=== PATIENT | female | born 1940 | race Caucasian/White ===

== ENCOUNTER → 2018-06-02 11:45 | Outpatient (CLI) | payer MEDICARE, BC, SELFPAY ==
[2018-06-02 13:05] LABS: Abs Immature Grans 0.01 k/cumm (0.0-0.09); Absolute Basophil Count 0.02 k/cumm (0.0-0.2); Absolute Eosinophil Count 0.12 k/cumm (0.0-0.7); Absolute Monocyte Count 0.55 k/cumm (0.11-0.7); Absolute Neutrophil Count 3.15 k/cumm (1.2-6.7); Basophils % 0.4; Eosinophils % 2.3; HCT 44.6 % (36.0-46.0); HGB 14.2 g/dL (12.0-15.5); Immature Grans % 0.2; Lymphocytes % 26.7; Mean Corp. HGB Concentration 31.8 g/dL (32.0-36.0); Mean Corpuscular Hemoglobin 26.3 pg (27.0-33.0); Mean Corpuscular Volume 82.6 fL (80-95); Mean Platelet Volume 10.2 fL (8.0-11.0); Monocytes % 10.5; Neutrophils % 59.9; Platelet Count 196 x1000/uL (130-400); RBC Distribution Width 14.9 % (11.7-14.6); White Blood Cell Count 5.25 k/cumm (4.4-10.8)
[2018-06-02 13:06] LABS: ALT 24 U/L (12-78); AST 18 U/L (15-37); Albumin 3.8 g/dL (3.4-5.0); Alkaline Phosphatase 84 U/L (46-116); Anion Gap 5.7 mmol/L (3-11); BUN 23 mg/dL (7-18); Bilirubin, Total 0.4 mg/dL (0.2-1.0); CO2 31.3 mmol/L (21.0-32.0); CREATININE 1.07 mg/dL (0.55-1.02); Calcium 9.3 mg/dL (8.5-10.1); Chloride 104 mmol/L (98-107); Glucose 93 mg/dL (70-100); Potassium 4.3 mmol/L (3.5-5.1); Sodium 141 mmol/L (136-145); TSH (W/Ref FT4) 1.46 uIU/mL (0.358-3.74); Total Protein 7.5 g/dL (6.4-8.2)
== END ==
PROVIDERS: PCP Family Medicine; Visit Provider Nurse Practitioner Family
DX: R53.83 Other fatigue (principal)
CPT/HCPCS: 36415; 80053; 84443; 85025

== ENCOUNTER 2018-08-05 15:03 | Outpatient (CLI) | payer MEDICARE, BC, SELFPAY ==
--- NOTE | 2018-08-05 13:36 | DI.RAD_ITS ---
SYMPTOM/DIAGNOSIS: COUGH,H/O LT LUNG CA, R05 PA AND LATERAL CHEST: The patient has a history of resection of a left lung carcinoma. A linear density projected over the left upper lobe presumably represents a region of scarring. No infiltrate is identified. There is no pleural effusion. The heart is not enlarged. There is unfolding and ectasia of the thoracic aorta. SUMMARY: No evidence of acute cardiopulmonary disease. The patient is apparent status post resection of a left lung carcinoma. If there is any further question regarding the status of this patient, then a CT could be considered for further review.
== END 2018-08-05 15:23 ==
PROVIDERS: PCP Family Medicine; Visit Provider Emergency Medicine
DX: Z85.118 Personal history of other malignant neoplasm of bronchus and lung (principal); Z90.2 Acquired absence of lung [part of]; R05 Cough
CPT/HCPCS: 71046

== ENCOUNTER 2018-08-18 01:44 | Outpatient (CLI) | payer MEDICARE, BC, SELFPAY ==
[2018-08-18 10:29] LABS: HCT 41.9 % (36.0-46.0); HGB 13.3 g/dL (12.0-15.5); Mean Corp. HGB Concentration 31.7 g/dL (32.0-36.0); Mean Corpuscular Hemoglobin 26.1 pg (27.0-33.0); Mean Corpuscular Volume 82.3 fL (80-95); Mean Platelet Volume 9.2 fL (8.0-11.0); Platelet Count 230 x1000/uL (130-400); RBC 5.09 m/cumm (4.00-5.20); RBC Distribution Width 14.7 % (11.7-14.6); White Blood Cell Count 5.15 k/cumm (4.4-10.8)
[2018-08-18 11:40] LABS: Cholesterol 193 mg/dL (50-200); HDL Cholesterol 43 mg/dL (40-60); LDL CHOLESTEROL 127 mg/dL (<100); Triglyceride 135 mg/dL (30-150); Vitamin B12 536 pg/mL (193-986)
== END 2018-08-18 02:04 ==
PROVIDERS: PCP Family Medicine; Visit Provider Family Medicine
DX: R79.89 Other specified abnormal findings of blood chemistry (principal); C34.90 Malignant neoplasm of unspecified part of unspecified bronchus or lung; K21.9 Gastro-esophageal reflux disease without esophagitis
CPT/HCPCS: 36415; 80061; 83721; 85027; 82607

== ENCOUNTER 2018-09-08 00:29 | Outpatient (CLI) | payer MEDICARE, BC, SELFPAY ==
--- NOTE | 2018-09-08 11:55 | DI.MAMMO_ITS ---
SYMPTOM/DIAGNOSIS: SCREENING, Z12.31 MAMMOGRAM: 09/08 Mammograms were interpreted according to the usual protocol including computer analysis with CAD system, tomosynthesis and C view imaging. The breasts are of moderate density with fairly symmetrical distribution of fibroglandular tissue. No dominant mass or clumped microcalcification is identified in either breast. The current examination is compared with previous examinations including July 2017 and there has been no gross interval change in appearance in comparison with the previous studies. CONCLUSION: No specific evidence of malignancy at this time. Routine screening examinations are suggested at yearly intervals in this age group according to the ACS/ACR guidelines. Category 1, breast density category B. MQSA ASSESSMENT OF FINDINGS: Negative. Category 1. Patient will receive a letter notifying them of these results. BI-RADS category B. There are scattered areas of fibroglandular density.
== END 2018-09-08 00:49 ==
PROVIDERS: PCP Family Medicine; Visit Provider Family Medicine
DX: Z12.31 Encounter for screening mammogram for malignant neoplasm of breast (principal)
CPT/HCPCS: 77063; 77067

== ENCOUNTER 2019-12-15 14:33 | Outpatient (CLI) | payer MEDICARE, BC, SELFPAY ==
[2019-12-15 15:00] LABS: HCT 42.1 % (36.0-46.0); HGB 13.6 g/dL (12.0-15.5); Mean Corp. HGB Concentration 32.3 g/dL (32.0-36.0); Mean Corpuscular Volume 80.5 fL (80-95); Mean Platelet Volume 9.2 fL (8.0-11.0); Platelet Count 182 x1000/uL (130-400); RBC 5.23 m/cumm (4.00-5.20); RBC Distribution Width 14.7 % (11.7-14.6); White Blood Cell Count 3.82 k/cumm (4.4-10.8)
[2019-12-15 16:24] LABS: ALT 28 U/L (14-59); AST 24 U/L (15-37); Albumin 3.6 g/dL (3.4-5.0); Alkaline Phosphatase 86 U/L (46-116); Anion Gap 8.1 mmol/L (3-11); BUN 20 mg/dL (7-18); Bilirubin, Total 0.5 mg/dL (0.2-1.0); CO2 32.9 mmol/L (21.0-32.0); CREATININE 0.83 mg/dL (0.55-1.02); Calcium 8.9 mg/dL (8.5-10.1); Chloride 100 mmol/L (98-107); Glucose 98 mg/dL (74-106); Potassium 3.6 mmol/L (3.5-5.1); Sodium 141 mmol/L (136-145); Total Protein 7.3 g/dL (6.4-8.2); Uric Acid 5.2 mg/dL (2.6-6.0)
[2019-12-16 11:00] LABS: Abs Immature Grans 0.01 k/cumm (0.0-0.09); Absolute Basophil Count 0.01 k/cumm (0.0-0.2); Absolute Eosinophil Count 0.08 k/cumm (0.0-0.7); Absolute Lymphocyte Count 0.75 k/cumm (1.2-3.4); Absolute Monocyte Count 0.56 k/cumm (0.11-0.7); Absolute Neutrophil Count 2.46 k/cumm (1.2-6.7); Basophils % 0.3; Eosinophils % 2.1; Immature Grans % 0.3 %; Lymphocytes % 19.4; Monocytes % 14.5; Neutrophils % 63.4
== END 2019-12-15 14:53 ==
PROVIDERS: PCP Family Medicine; Visit Provider Family Medicine
DX: Z01.818 Encounter for other preprocedural examination (principal); Z87.39 Personal history of other diseases of the musculoskeletal system and connective tissue
CPT/HCPCS: 80053; 85027; 84550; 85007

== ENCOUNTER 2020-05-05 09:29 | Outpatient (CLI) | payer MEDICARE, BC, SELFPAY ==
[2020-05-05] MEDS: Omnipaque 350 MG/ML 100 ML BTL IJ (11:56)
--- NOTE | 2020-05-05 12:00 | DI.CT_ITS ---
EXAM: CT CHEST W CLINICAL HISTORY: Hx left lung ca/RL ground glass opacity on CT 2016 TECHNIQUE: COMPARISON: CT CHEST WITH CONTRAST from 08/09/[address] CHEST WO from 01/18/2017 CT CHEST WITH CONTRAST from 08/09/2017 CT CHEST WITH CONTRAST from 08/09/2017 FINDINGS: CT examination of the chest was performed with bolus infusion of 70 cc of Omnipaque 350. Images obta ined through the upper abdomen show an enhancing right lobe hepatic lesion measuring about 11 millime ters in greatest diameter, this was also present on prior CT of July 2015 although it may be sligh tly larger on the current examination. No additional hepatic or splenic abnormality seen. Visualize d portions of the pancreas appear intact. Multiple left renal cysts noted. Adrenals are unremarkabl e. Right kidney unremarkable in its visualized extent. Gallbladder and bile ducts unremarkable. There is been a prior left lobectomy. No recurrent mass or consolidation in the left lung. No signi ficant pleural based mass. No pleural effusion. Right lung contains a previously described upper lo be ground-glass opacity, this measures about 10 x 8 millimeters on diameter, grossly unchanged from p rior CT of July 2017. Otherwise right lung is clear. There is mild cardiomegaly. No mediastinal or hilar adenopathy. No supraclavicular or axillary santino opathy. No thoracic aortic aneurysm or dissection. No pulmonary embolus identified although the pulmonary ar terial circulation is not ideally opacified. IMPRESSION: No evidence of recurrent lung carcinoma. Persistent ground-glass opacity of the right upper pulmonar y lobe, no gross interval change in appearance since July 2017 CT.
== END 2020-05-05 09:49 ==
PROVIDERS: PCP Family Medicine; Visit Provider Family Medicine
DX: C34.92 Malignant neoplasm of unspecified part of left bronchus or lung; J98.4 Other disorders of lung; Z90.2 Acquired absence of lung [part of]
CPT/HCPCS: 71260; 82565; 85025; J3490

== ENCOUNTER 2020-05-12 10:26 | Outpatient (CLI) | payer MEDICARE, BC, SELFPAY ==
--- NOTE | 2020-05-12 14:00 | DI.MRI_ITS ---
EXAM: MR CERVICAL SPINE WO/W CLINICAL HISTORY: UNPROVOKED SEVERE NECK PAIN/STIFFNESS IN CANCER PT, M54.2, C03.0-GUM CA TECHNIQUE: Multiplanar multisequence MRI of the cervical spine was performed. CONTRAST MATERIAL: IV Contrast: 15 ML of Dotarem contrast administered. COMPARISON: CT CHEST WITH CONTRAST from 08/09/[address] CHEST WO from 01/18/[address] CHEST W from 05/05/2020 FINDINGS: BONES: Vertebral body heights are maintained. Degenerative changes are seen at multiple disc spaces i n the cervical spine. Alignment is normal. Degenerative endplate signal changes are seen at C5-C6. CERVICAL CORD: Craniovertebral junction is unremarkable. The cervical cord is normal size and signal intensity. No lesion is present. SOFT TISSUES: There are 2 well-circumscribed round masses in the subcutaneous fat in the posterior ne ck. The more superior measures 2.0 x 1.1 cm. More inferior measures 2.1 x 1 cm. These were partial ly visualized on a prior CT scan of the chest. ENHANCEMENT: No suspicious enhancement identified. C2-3: No disc herniation or bulge is identified. No significant central spinal canal or neural forami nal stenosis. C3-4: No disc herniation or bulge is identified. Mild degenerative changes of the right uncovertebral joint cause mild neural foraminal narrowing. No significant central spinal canal or left neural for aminal stenosis is seen. C4-5: No disc herniation or bulge is identified. No central spinal canal stenosis is seen. Uncoverte bral joint hypertrophy is noted causing moderate right and left neural foraminal stenosis. C5-6: There is mild prominence of the osteophyte disc complex effacing the anterior subarachnoid spac e. Mild narrowing of the central spinal canal is noted. Degenerative changes of the uncovertebral j oints are noted causing [id number] bilateral neural foraminal stenosis. C6-7: Mild prominence of the osteophyte disc complex. There is effacement of the anterior subarachno id space with flattening of the spinal cord anteriorly. Mild narrowing of the central spinal canal i s noted. There are mild hypertrophic changes of the uncovertebral joints causing mild narrowing of t he neural foramen bilaterally. Normal signal is seen in the spinal cord. C7-T1: No disc herniation or bulge is identified. No significant central spinal canal or neural dex inal stenosis IMPRESSION: 1. Multilevel degenerative changes throughout the cervical spine resulting in multilevel central spin al canal neural foraminal stenosis as described above. 2. Two subcutaneous nodules along the posterior neck. Please correlate with physical examination. F urther evaluation may be obtained with ultrasound. DATA REPOSITORY:
[2020-05-12] MEDS: Normal Saline Flush 10 ML SYR IVP (14:16)
[2020-05-12] MEDS: Gadoterate meglumine 20 ML VIAL 15 ML IVP (14:17)
== END 2020-05-12 10:46 ==
PROVIDERS: PCP Family Medicine; Visit Provider Family Medicine
DX: C03.0 Malignant neoplasm of upper gum (principal); M54.2 Cervicalgia; M48.02 Spinal stenosis, cervical region; M50.31 Other cervical disc degeneration, high cervical region; R22.1 Localized swelling, mass and lump, neck
CPT/HCPCS: 72156

== ENCOUNTER 2020-07-03 08:26 | Emergency (ER) | payer MEDICARE, BC, SELFPAY ==
[2020-07-03 08:25] VITALS: BP 141/69; PULSE 79; RESP 20; TEMP 36.6; O2SAT 98
--- NOTE | 2020-07-03 08:36 | ED.GENADUL_ITS ---
Discharge Plan Disposition Patient Disposition: [facility] Condition: Serious Discharge Details Chief Complaint: Epistaxis Clinical Impression: Hemorrhage from mouth Primary Care Provider: Ester Carmona ED Provider: Cherry Malin Home Meds and New Rx's Prescriptions: No Action latanoprost 2.5 ML drops 1 drp Ophthalmic DAILY RF: 0 timolol 1 drp OS BID RF: 0 pravastatin 10 mg tablet 10 mg PO DAILY Qty: 90 RF: 4 omeprazole 20 mg capsule,delayed release(DR/EC) 20 mg PO DAILY Qty: 90 RF: 3 amlodipine 10 mg tablet 10 mg PO DAILY Qty: 90 RF: 4 hydrochlorothiazide 25 mg Tablet 25 mg PO DAILY RF: 0 Discharge Data Discharge Date/Time-TO BE ENTERED AT DEPARTURE: 07/03/20 10:49 Medical Decision Making Patient is a pleasant 80-year-old female presenting today with chief complaint of epistaxis. Patient is brought in via EMS. She reports that she awoke this morning it 0715 and noted bleeding from the right naris. The time EMS arrived, proximally half hour later, the bleeding had stopped. Patient is brought in with bleeding controlled. 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 This was surgically extracted in 2019. Patient subsequently was diagnosed with same type of cancer on the left side of her neck which also underwent excision. Patient reports she is not had any complications since the postsurgical.. She reports she has not had any epistaxis. Patient's not anticoagulated. On exam, patient appears anxious. No active bleeding is noted. She has what appears to be erosion of the inferior aspect of the right naris and there is formed clot from the inferior aspect. No bleeding is noted in the posterior oropharynx but the mouth is coated and dried blood. Patient does have a plate in the upper aspect which she removed and clot is able to be visualized at the top of this. There is a continuation between the right side of the palate up into the nose with a quarter size clot in that area. Unclear at this time based on exam, if the bleeding is actually coming from the intraoral portion, the nose are a mixture of the 2. However, she is not bleeding at this time, hemodynamically stable. Patient is quite concerned that she is not able to avoid heavy lifting and worsening activities. Her Was recently diagnosed with multiple myeloma. She states that she is his primary caregiver. I did have a long conversation with her daughter, Ramila who can be reached at [phone]. She advised that until recently, the patient and her were both residing with her in a [id number] apartment. She is able to help out at home but would prefer that they move in with her. Shortly after I spoke with the patient's daughter, she began bleeding again. This immediately was coming into the intraoral cavity. Patient did have the plate out. I am concerned that the removal of the plate may have been what prompted the bleed once again. At this time, she does have large clots. The plate was replaced, Afrin applied both nares and a clamp placed to the nose. I will consult with ENT. Based on size of the clots and how quickly they are reforming, I am concerned that she may need to be transferred for surgical consultation with ENT as this is a difficult area to reach with the patient's unusual anatomy. Patient began bleeding much more vigorously. Was spitting out large clots approximately enough to fill cupped hand every 1 to 2 minutes. She is protecting her airway, remains hemodynamically stable. Decision was then made to align the patient's fitted plate with Gelfoam and have her reinsert this and bite down. Will consult with ENT as patient is bleeding from area that is difficult to visualize at this point. [place] [facility] advised Have a suction with her. They agree to excepting patient. Dr. Vasquez will accept the patient in the emergency department. Will arrange for ground Transport patient is continuing to bite down on her plate that is Gelfoam lined. This does seem to have drastically improved her bleeding. She does still have some Amount of bleeding coming from her nose and is suctioning some from her mouth. [place] [facility] [place]. All visible bleeding has stopped. Plate with Gelfoam is still in place and patient has been biting down. All of her questions and her daughter's questions were answered and they are in agreem tn with this plan. HPI General Mode of arrival: EMS . Date/Time Provider Initiated Documentation: 07/03/20 09:13 . Limitations to Documentation: no limitations . Information obtained by: patient and RN notes reviewed . History of Present Illness 80 year old F presents to the emergency department with the chief complaint of epistaxis, described as mild (resolved at this time), with intensity rated at 1 (none at this time). and is localized to the face. Patient reports no radiation. Patient started experiencing this hour(s) (1) and it has been now resolved. No relieving factors improve symptom(s), No exacerbating factors reported . Patient notes no other symptoms.. Patient did receive the following treatments prior to arrival, none Related Data Home Medications Medication Instructions Recorded Confirmed latanoprost 1 drp OPHTHALMIC DAILY drp 09/05/15 07/03/20 timolol 1 drp OS BID 08/13/18 07/03/20 pravastatin 10 mg tablet 10 mg PO DAILY #90 tab-cap 08/20/19 07/03/20 omeprazole 20 mg capsule,delayed 20 mg PO DAILY #90 tab-cap 09/04/19 07/03/20 release amlodipine 10 mg tablet 10 mg PO DAILY #90 tab 02/02/20 07/03/20 hydrochlorothiazide 25 mg PO DAILY 07/03/20 07/03/20 Previous Rx's Medication Instructions Recorded pravastatin 10 mg tablet 10 mg PO DAILY #90 tab-cap 08/20/19 omeprazole 20 mg capsule,delayed 20 mg PO DAILY #90 tab-cap 09/04/19 release amlodipine 10 mg tablet 10 mg PO DAILY #90 tab 02/02/20 Allergies Allergy/AdvReac Type Severity Reaction Status Date / Time brimonidine tartrate Allergy Intermediate REDNESS, Verified 07/03/20 08:28 [From Alphagan P] IRRITATION Penicillins Allergy Intermediate RASH Verified 07/03/20 08:28 General Stated Complaint: Epistaxis RAYNA: 3 Review of Systems Constitutional Constitutional: Reports as per HPI, Denies chills, Denies fatigue, Denies fever(s) and Denies headache(s) Eyes Eyes: Reports as per HPI, Denies blurry vision and Denies change in vision ENT Ears, Nose, Mouth, and Throat: Reports as per HPI, Reports bleeding gums, Denies change in voice and Denies headache(s) Cardiovascular Cardiovascular: Reports as per HPI, Denies chest pain and Denies dyspnea Respiratory Respiratory: Reports as per HPI, Denies cough, Denies hemoptysis and Denies dyspnea Gastrointestinal Gastrointestinal: Reports as per HPI, Denies melena, Denies hematochezia, Denies nausea and Denies vomiting Genitourinary Genitourinary: Reports as per HPI and Denies hematuria Integumentary/Breasts Skin/Breast: Denies unusual bruising Neurologic Neurologic: Denies headache(s) Endocrine Endocrine: Denies fatigue Hematologic/Lymphatic Hematologic/Lymphatic: Reports as per HPI, Denies easy bleeding and Denies easy bruising [facility] Medical History 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 Magnus Thornton Dilation and curettage 1979 2009 Extraction of cataract (~2011) Ligation of fallopian tube Social History Smoking/Tobacco Use Status: Former Tobacco Use Drug use: Never Do you feel safe at home: Yes Do you feel safe in your relationship?: Yes Exam Const General: cooperative, healthy appearing, comfortable, no acute distress, well developed and anxious Nutritional Appearance: average body habitus and well nourished Orientation: alert and awake [facility] Head: normal to inspection, normocephalic and atraumatic Ears: hearing grossly normal bilaterally and external ears normal General nose exam: epistaxis on the right (clot inferiorly, no active bleeding. Protruding white tissue through clot) anterior source, external nose abnormal, no nasal polyps and septum abnormal Face and sinus: face asymmetric (Postsurgical changes with an burn on the right side consistent with extract) Mouth: lip normal and tongue normal Teeth image: 1. Patient has post surgical erosion in this area approximately quarter-sized hole from the palate into the nasopharynx. There is a large clot that is visualized in this area. No active bleeding is a be noted. No surrounding tissue changes. Eyes General: appearance normal, both eyes and all related structures Neck Neck: normal visual inspection, full ROM, no lymphadenopathy, no meningeal signs and no lymphadenopathy noted Resp Effort & Inspection: normal respiratory effort, able to speak in complete sentences and no respiratory distress Cardio Rate: regular rate Rhythm: regular rhythm Skin General skin exam: no rashes or lesions noted Neuro General: patient alert, patient awake and patient oriented x3 Cranial Nerves: CN's II-XI intact bilaterally Cognition: normal cognition Speech: speech normal Gait: normal gait Psych Appearance: grossly normal and well kempt Mental Status: mental status grossly normal Speech and Movement: speech and movement normal Course Vital Signs Vital signs: Vital Signs Temperature 36.6 C 07/03/20 08:25 Pulse 79 07/03/20 08:25 Respiratory Rate 07/03/20 08:25 Blood Pressure 141/69 H 07/03/20 08:25 Pulse Oximetry 98 07/03/20 08:25 Temperature 36.6 C 07/03/20 08:25 Temperature Source Skin 07/03/20 08:25 Pulse 79 07/03/20 08:25 Respiratory Rate 20 07/03/20 08:25 Blood Pressure 141/69 H 07/03/20 08:25 Blood Pressure Position Sitting 07/03/20 08:25 Pulse Oximetry 98 07/03/20 08:25 Oxygen Delivery Method Room Air 07/03/20 08:25 Oxygen Flow Rate 0 07/03/20 08:25 Pain Level 0 07/03/20 08:25
[2020-07-03] MEDS: Oxymetazolone 0.05% SPRAY 15 ML BTL (09:11)
[2020-07-03] MEDS: Gelatin SPONGE 12-7 MM PKT 1 EACH TP (09:38)
[2020-07-03 09:40] VITALS: BP 131/66; PULSE 82
[2020-07-03 10:05] VITALS: BP 131/66; PULSE 82; RESP 16; TEMP 36.6; O2SAT 98
== END 2020-07-03 10:49 | disposition short-term general hospital (02) ==
PROVIDERS: Emergency Provider Physician Assistant; PCP Family Medicine
DX: K13.79 Other lesions of oral mucosa (principal); R58 Hemorrhage, not elsewhere classified; Z85.818 Personal history of malignant neoplasm of other sites of lip, oral cavity, and pharynx; I10 Essential (primary) hypertension
CPT/HCPCS: 99285; 99283

== ENCOUNTER 2021-03-15 01:59 | Outpatient (CLI) | payer MEDICARE, BC, SELFPAY ==
--- NOTE | 2021-03-15 09:00 | DI.CT_ITS ---
Exam(s) CT LUMBAR SPINE WO/W EXAM: CT LUMBAR SPINE WO/W CLINICAL HISTORY: possible metastatic disease,LUNG CA,LUMBAR BACK PAIN,M54.5,C03.00,C34.90. TECHNIQUE: Imaging Protocol: Axial computed tomography images with coronal and sagittal reformatted images were created and reviewed COMPARISON: There are no plain films lumbar spine available time this CT interpretation. Also no pr ior MRI study. FINDINGS: Bones: There are no compression fractures, listhesis, nor pars defects. There are no lytic osseous l esions evident.There is advanced disc space narrowing at each level including vacuum phenomenon seen within each disc space level. Also multilevel facet arthropathy. INDIVIDUAL LEVELS: T12-L1:No disc herniation nor canal stenosis. Mild facet arthropathy. L1-2: No disc herniation nor canal stenosis. Mild central canal stenosis. Moderate facet arthropat hy. No foraminal stenosis. L2-3: No disc herniation nor canal stenosis. Mild central canal stenosis. Moderate facet arthropat hy. No obvious foraminal stenosis. L3-4: Moderate central spinal canal stenosis related to annular bulging and short AP dimensions the pedicles and mild degenerative changes in the facet joints. No significant foraminal stenosis. L4-5: Moderate central spinal canal stenosis related to annular bulging, short AP dimensions the ped icles, and some facet arthropathy. No prominent foraminal stenosis. L5-S1: No disc herniation or canal stenosis. Mild bilateral foraminal stenosis . The visualized sacroiliac joints and sacrum appear unremarkable. PARASPINAL SOFT TISSUES: Cysts in the kidneys noted. IMPRESSION: 1. Multilevel chronic degenerative disc disease and degenerative changes. Multilevel moderate centra l spinal canal stenosis at L3-4 and L4-5 levels. This related to annular bulging and short AP dimens ions the pedicles and degenerative changes in the facet joints at these levels. 2. No fractures nor obvious lytic lesions evident. 3. RADIATION DOSE DELIVERED: 855.54mGy.cm Total DLP DATA REPOSITORY: All CT scans at this facility are submitted to the National Radiology Data Registry (NRDR) Dose Index Registry (DIR) with the [employer] (ACR). RADIATION OPTIMIZATION: All CT scans at this facility use at least one of these dose optimization te chniques: automated exposure control; mA and/or kV adjustment per patient size (includes targeted exa ms where dose is matched to clinical indication); or iterative reconstruction.
[2021-03-15 14:15] LABS: CREATININE 0.8 mg/dL (0.55-1.02)
[2021-03-15] MEDS: Omnipaque 350 MG/ML 100 ML BTL IJ (15:15)
[2021-03-15] MEDS: Normal Saline - Diluent 50 ML VIAL IV (15:16)
[2021-03-15] MEDS: Normal Saline Flush 10 ML SYR IVP (15:17)
== END 2021-03-15 02:19 ==
PROVIDERS: PCP Family Medicine; Visit Provider Emergency Medicine
DX: M54.5 Low back pain (principal); C34.92 Malignant neoplasm of unspecified part of left bronchus or lung; M51.36 Other intervertebral disc degeneration, lumbar region; M48.061 Spinal stenosis, lumbar region without neurogenic claudication; Z01.812 Encounter for preprocedural laboratory examination
CPT/HCPCS: 72132; 82565; J3490

== ENCOUNTER 2021-04-19 09:41 | Outpatient (CLI) | payer MEDICARE, BC, SELFPAY ==
[2021-04-19 12:58] LABS: Ferritin 18 ng/mL (8-252)
== END 2021-04-19 09:42 | disposition home or self-care (01) ==
LOC: LOS 09:41
PROVIDERS: PCP Family Medicine; Visit Provider Family Medicine
DX: Z86.2 Personal history of diseases of the blood and blood-forming organs and certain disorders involving the immune mechanism (principal)
CPT/HCPCS: 36415; 82728

== ENCOUNTER 2021-06-30 04:53 | Outpatient (CLI) | payer MEDICARE, BC, SELFPAY ==
--- NOTE | 2021-06-30 08:30 | DI.MAMMO_ITS ---
Exam(s) MAMMO SCREENING EXAM: MAMMO SCREENING CLINICAL HISTORY: screening, Z12.39 TECHNIQUE: Mammograms were interpreted according to the usual protocol including computer analysis w [employer] CAD system, tomosynthesis and C-view imaging. COMPARISON: 2011 through 2019 FINDINGS: The breasts are composed of scattered fibroglandular densities, Breast Density category B. No suspicious masses or suspicious microcalcifications are seen. No skin thickening or abnormal axillary lymph nodes are seen. Previously noted enlarged left axillar y lymph node not visible on today's exam. There has been no significant change from prior exams. IMPRESSION: BI-RADS Category 1, Negative mammogram Yearly screening mammography is recommended. Breast Density - Category B, scattered fibroglandular densities. A negative radiographic report should not delay biopsy if a dominant or clinically suspicious mass is present. Up to ten percent of cancers are not identified on mammography. A negative report may reinforce clinical impression. Adenosis and dense breasts may obscure an underlying neoplasm. False positive reports average 6 to 10%. Patient will receive a letter notifying them of these results.
== END 2021-06-30 05:13 ==
PROVIDERS: PCP Family Medicine; Visit Provider Family Medicine
DX: Z12.31 Encounter for screening mammogram for malignant neoplasm of breast (principal)
CPT/HCPCS: 77063; 77067

== ENCOUNTER 2021-07-10 02:44 | Outpatient (CLI) | payer MEDICARE, BC, SELFPAY ==
--- OUTSIDE RECORDS SUMMARY | 2021-07-10 02:46 | XMS_ITS ---
:1940 Author Care Team Providers Name Role Phone VIDA PAGE ([facility]) Primary Care Provider [phone] Allergies Code Code System Name Reaction Severity Status Onset 367302 RxNorm Brimonidine ? ? Active ? Penicillins ? ? Active ? Medications Name Status Start Date Stop Date ? ? amlodipine 10 mg tablet Active ? Not avai lable cephalexin 250 mg/5 mL oral suspension Completed ? 08/12/2020 fluconazole 100 mg tablet Completed ? 2019 fluconazole 150 mg tablet Completed ? 2019 fluconazole 40 mg/mL oral suspension Completed ? 08/12/2020 latanoprost 0.005 % eye drops Active ? No t available lisinopril 20 mg tablet Completed ? 08/12/20 metoclopramide 10 mg tablet Completed ? 07/22 metoclopramide 5 mg/5 mL oral solution Completed ? 08/12/2020 nystatin 100,000 unit/mL oral Completed ? suspension omeprazole 20 mg capsule,delayed Active ? Not available release ondansetron 4 mg disintegrating tablet Completed ? 08/12/2020 oseltamivir 6 mg/mL oral suspension Active ? Not available pravastatin 10 mg tablet Active ? Not kendell ilable prednisone 20 mg tablet Completed ? 08/12/20 20 PreviDent 5000 Booster Plus 1.1 % Completed ? 08/12/2020 dental paste timolol maleate 0.5 % once daily eye Completed ? 08/12/2020 drops tramadol 50 mg tablet Completed ? 08/12/2020 Problems Name Status Onset Date Source ? Vitamin D Deficiency Active 07/21/2020 ? Hyperlipidemia Active 07/21/2020 ? Essential Hypertension Active 07/21/2020 ? Gastroesophageal Reflux Disease Active 07/21/2020 ? Diverticulitis Active 07/21/2020 ? Osteopenia Active 07/21/2020 ? Edema Active 07/21/2020 ? Primary Malignant Neoplasm of Lung Active 08/12/2020 ? Procedures Date Name Performed by ? 08/12/2020 CT, Chest, W/o Contrast [facility] (Internal) [address] [place] [address] (Work Place) Results Lab Results None recorded. Past Encounters 08/12/2020 Primary Malignant Neoplasm of Lung Shwetha Fonseca MD: [address] [place] [address] [address], [place] [address], Ph. Social History None recorded. Vaccine List Vaccine Type influenza, injectable, quadrivalent 08/13/2018 pneumococcal polysaccharide PPV23 10/21/1998 08/16/2008 Td (adult) 07/21/1999 08/25/2009 Plan of Care Reminders Provider Appointments None ? ? recorded. Lab None ? ? recorded. Referral None ? ? recorded. Procedures None ? ? recorded. Surgeries None ? ? recorded. Imaging None ? ? recorded. Vitals Height Weight BMI Blood Pressure 170.18 cm 64 kg 22.1 kg/m2 139/72 mm[Hg]
[2021-07-10 11:04] LABS: ALT 23 U/L (14-59); AST 17 U/L (15-37); Albumin 3.7 g/dL (3.4-5.0); Alkaline Phosphatase 113 U/L (46-116); Anion Gap 6.4 mmol/L (3-11); BUN 21 mg/dL (7-18); Bilirubin, Total 0.6 mg/dL (0.2-1.0); CO2 32.6 mmol/L (21.0-32.0); CREATININE 0.8 mg/dL (0.55-1.02); Calcium 9.2 mg/dL (8.5-10.1); Calculated LDL 114 mg/dL (<100); Chloride 106 mmol/L (98-107); Cholesterol 190 mg/dL (<200); Ferritin 23 ng/mL (8-252); Glucose 91 mg/dL (74-106); HDL Cholesterol 62 mg/dL (40-60); Sodium 145 mmol/L (136-145); Total Protein 7.6 g/dL (6.4-8.2); Triglyceride 73 mg/dL (<150)
== END 2021-07-10 02:45 | disposition home or self-care (01) ==
LOC: LBO 02:44
PROVIDERS: PCP Family Medicine; Visit Provider Family Medicine
DX: I10 Essential (primary) hypertension (principal); E78.5 Hyperlipidemia, unspecified; D50.9 Iron deficiency anemia, unspecified
CPT/HCPCS: 36415; 80053; 80061; 82728

== ENCOUNTER 2021-08-04 18:08 | Emergency (ER) | payer MEDICARE, BC, SELFPAY ==
[2021-08-04 18:13] VITALS: BP 135/60; PULSE 65; RESP 18; TEMP 36.6; O2SAT 97
--- NOTE | 2021-08-04 18:30 | DI.CT_ITS ---
Exam(s) CT HEAD CERVICAL SPINE WO EXAM: CT HEAD CERVICAL SPINE WO CLINICAL HISTORY: fall, pain. TECHNIQUE: Imaging Protocol: Axial computed tomography images with coronal and sagittal reformatted images were created and reviewed COMPARISON: CT CHEST WITH CONTRAST from 08/09/2017 CT CHEST WITH CONTRAST from 08/09/[address] CHEST W from 05/05/[address] CHEST W from 05/05/2020 FINDINGS: CT Head: Ventricles and Extra axial spaces: Normal in size and morphology for the patient's age. Hemorrhage: None. Cerebral parenchyma: No acute territorial infarct. There are areas of decreased attenuation in the w michelle matter consistent with small vessel ischemic disease. Midline shift: None. Brainstem/Cerebellum: Normal. Calvarium: Normal. Visualized Paranasal sinuses/Mastoids: Clear. Soft Tissues: There is a scalp hematoma overlying the left frontal bone. CT Cervical Spine: Bones: No acute fracture or subluxation. Degenerative changes are seen in the spine. Soft Tissues: There is a 2.4 x 2.3 x 3.5 cm subcutaneous collection in the posterior left neck. Thes e appear to be small amount of internal air. There is a 2nd more inferior subcutaneous collection in the left posterior neck measuring 2.1 x 1.5 x 2.3 cm. Lung Apices: Clear. IMPRESSION: 1. No acute intracranial process. 2. Left frontal scalp hematoma. 3. No acute fracture or subluxation in the cervical spine. 4. Two soft tissue subcutaneous collections in the posterior left neck soft tissues. These may repre sent abscesses. Other masses or metastatic disease cannot be excluded. RADIATION DOSE DELIVERED: 1,336.22mGy.cm Total DLP DATA REPOSITORY: All CT scans at this facility are submitted to the National Radiology Data Registry (NRDR) Dose Index Registry (DIR) with the [employer] (ACR). RADIATION OPTIMIZATION: All CT scans at this facility use at least one of these dose optimization te chniques: automated exposure control; mA and/or kV adjustment per patient size (includes targeted exa ms where dose is matched to clinical indication); or iterative reconstruction.
--- NOTE | 2021-08-04 18:34 | ED.GENADUL_ITS ---
Discharge Plan Disposition Patient Disposition: HOME Condition: Stable Discharge Details Clinical Impression: Fall, Blunt head trauma Primary Care Provider: Sangeeta Malone ED Provider: Khadar Aden Home Meds and New Rx's Prescriptions: Continued citalopram 10 mg tablet 10 mg PO DAILY Qty: 30 RF: 3 omeprazole 20 mg capsule,delayed release(DR/EC) 20 mg PO DAILY Qty: 90 RF: 3 pravastatin 10 mg tablet 10 mg PO DAILY Qty: 90 RF: 4 timolol drops 1 drp OS BID Qty: 10 RF: 2 sulfamethoxazole-trimethoprim 800-160 mg tablet 1 tab PO BID Qty: 20 RF: 0 latanoprost 0.005 % drops 1 drp Ophthalmic DAILY Qty: 10 RF: 2 amlodipine 10 mg tablet 10 mg PO DAILY Qty: 90 RF: 4 ferrous sulfate 325 mg (65 mg iron) tablet 325 mg PO DAILY Qty: 90 RF: 2 Discharge Instructions Additional Instructions: Your cat scan did not show any emergent abnormalities, there was no internal bleeding or broken bones follow up as scheduled with your surgeon on Saturday. if you feel more ill, have severe worsening pain or difficulty breathing return to the emergency department Medical Decision Making 81 yo female comes in after a fall. She states she was stepping over a 1 foot stone wall and her foot hit the top of the wall and she fell forward, denies any preceding symptoms and did not have loc. She has several small abrasions to the anterior head and anterior right leg, no lacerations. She is caox4 no focal neuro deficits, CN II-XII intact with full range of motion of all extremities. eomi without pain. Full range of motion of the mandible. Given her age and fall will ct head/c spine to evaluate for traumatic injury. no pain in the right leg where she has some small abrasions and full range of motion so do not feel xray indicated. no chest, T/L spine tenderness or abdominal tenderness pt stable, no changes on exam. CT head unremarkable, has no acute c spine fractures or subluxation but does have 2 subcutaneous collections in left posterior neck which she has had on prior imaging studies. She has no tenderness or erythema on exam so doubt acute abscess, she apparently has an appointment with surgery on Saturday for possible removal of these. She is stable for d/c, return precautions given Differential Diagnosis Differential Diagnosis: tbi, contusion Imaging Data Radiologic Study: Attestation: I personally reviewed and interpreted this imaging study as follows: Imaging: CT Scan Radiologist's impression: IMPRESSION: 1. No acute intracranial findings. 2. No acute fracture. 3. Frontal scalp soft tissue edema. IMPRESSION: 1. No acute fracture or subluxation. 2. Posterior subcutaneous edema. 2.4 x 2.3 x 3.5 cm subcutaneous complex collection in the left posterior neck soft tissues with small internal air collections and additional 2.1 x 1.5 x 2.3 cm subcutaneous complex collection within the left posterior neck soft tissues (collections extend from the C7-T2 levels). Possible abscesses. HPI General Mode of arrival: ambulatory . Date/Time Provider Initiated Documentation: 08/04/21 18:20 . Limitations to Documentation: no limitations . Information obtained by: patient . History of Present Illness 81 year old F presents to the emergency department with the chief complaint of head pain s/p fall, described as moderate, Quality is described as aching, and it has been constant. No relieving factors improve symptom(s), No exacerbating factors reported . Patient notes no other symptoms.. Patient did receive the following treatments prior to arrival, none Related Data Home Medications Medication Instructions Recorded Confirmed latanoprost 0.005 % eye drops 1 drp OPHTHALMIC DAILY #10 ml 07/27/20 08/04/21 amlodipine 10 mg tablet 10 mg PO DAILY #90 tab 02/06/21 08/04/21 citalopram 10 mg tablet 10 mg PO DAILY #30 tab 04/19/21 08/04/21 ferrous sulfate 325 mg (65 mg 325 mg PO DAILY #90 tab 04/24/21 08/04/21 iron) tablet omeprazole 20 mg capsule,delayed 20 mg PO DAILY #90 tab-cap 06/19/21 08/04/21 release pravastatin 10 mg tablet 10 mg PO DAILY #90 tab-cap 06/19/21 08/04/21 sulfamethoxazole 800 1 tab PO BID #20 tab 08/02/21 08/04/21 mg-trimethoprim 160 mg tablet timolol 1 drp OS BID #10 ml 08/02/21 08/04/21 Previous Rx's Medication Instructions Recorded latanoprost 0.005 % eye drops 1 drp OPHTHALMIC DAILY #10 ml 07/27/20 amlodipine 10 mg tablet 10 mg PO DAILY #90 tab 02/06/21 citalopram 10 mg tablet 10 mg PO DAILY #30 tab 04/19/21 ferrous sulfate 325 mg (65 mg 325 mg PO DAILY #90 tab 04/24/21 iron) tablet omeprazole 20 mg capsule,delayed 20 mg PO DAILY #90 tab-cap 06/19/21 release pravastatin 10 mg tablet 10 mg PO DAILY #90 tab-cap 06/19/21 sulfamethoxazole 800 1 tab PO BID #20 tab 08/02/21 mg-trimethoprim 160 mg tablet timolol 1 drp OS BID #10 ml 08/02/21 Allergies Allergy/AdvReac Type Severity Reaction Status Date / Time brimonidine tartrate Allergy Intermediate REDNESS, Verified 08/04/21 18:16 [From Alphagan P] IRRITATION Penicillins Allergy Intermediate RASH Verified 08/04/21 18:16 General Stated Complaint: Trauma RAYNA: 4 Review of Systems All systems reviewed & are unremarkable except as noted in HPI and below Constitutional Constitutional: Denies chills, Denies fever(s) and Denies weakness Eyes Eyes: Denies loss of vision ENT Ears, Nose, Mouth, and Throat: Denies change in voice Cardiovascular Cardiovascular: Denies chest pain and Denies dyspnea Respiratory Respiratory: Denies cough and Denies dyspnea Gastrointestinal Gastrointestinal: Denies abdominal pain, Denies nausea and Denies vomiting Musculoskeletal Musculoskeletal: Denies joint swelling Neurologic Neurologic: Denies loss of vision and Denies weakness [facility] Medical History [place] of [place]03/26/17[place] [facility] [place] ([place] DNI (do not intubate) DNR (do not resuscitate) Essential hypertension (07/21/15) GERD (gastroesophageal reflux disease) (07/21/15) Hyperlipidemia, unspecified (07/21/15) Low vitamin D level (07/21/15) Lumbar back pain CT shows DJD Malignant neoplasm of unspecified part of left bronchus or lung Osteopenia POLST (Physician Orders for Life-Sustaining Treatment) 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 Magnus Thornton Dilation and curettage 1979 2009 Extraction of cataract (~2011) Ligation of fallopian tube Social History Smoking/Tobacco Use Status: Never Smoking risk assessment performed?: Yes Alcohol Intake: never Drug use: Never Substance use type: does not use Caregiver/Support person: Yes Household members: spouse, family, children and caregiver Housing: house Communication Needs: None Do you need help understanding health information?: Rarely Pets and animals: Yes Pets and animals: cat(s) and dog(s) Sexually active: No Do you think of yourself as: straight/heterosexual Current gender identity: female What is your relationship status?: Do you belong to any clubs or organized social groups?: no Panel score (0-1 are the most socially isolated patients): 1 Seatbelt use: always Helmet use: No Drive intox or ride w/intox ambulette driver: No Do you feel safe at home: Yes Do you feel safe in your relationship?: Yes Exam Const General: no acute distress Orientation: alert HENMT Head: no palpable skull fracture Ears: external ears normal General nose exam: external nose normal Mouth: moist mucous membranes Eyes General: appearance normal, both eyes and all related structures Neck Neck: normal visual inspection Resp Effort & Inspection: normal respiratory effort and able to speak in complete sentences Cardio Rate: regular rate Skin General skin exam: no rashes or lesions noted Neuro General: patient alert and patient oriented x3 Extrem General: normal to inspection Psych Mental Status: mental status grossly normal Course Vital Signs Vital signs: Vital Signs Temperature 36.6 C 08/04/21 18:13 Pulse 65 08/04/21 18:13 Respiratory Rate 18 08/04/21 18:13 Blood Pressure 135/60 08/04/21 18:13 Pulse Oximetry 97 08/04/21 18:13 Temperature 36.6 C 08/04/21 18:13 Temperature Source Skin 08/04/21 18:13 Pulse 65 08/04/21 18:13 Respiratory Rate 18 08/04/21 18:13 Respiratory Effort Non-Labored 08/04/21 18:18 Blood Pressure 135/60 08/04/21 18:13 Pulse Oximetry 97 08/04/21 18:13 Pain Level 1 08/04/21 18:13
--- NOTE | 2021-08-04 19:36 | DI.VRAD_ITS ---
PROCEDURE INFORMATION: Exam: CT Head Without Contrast Exam date and time: 08/04/2021 6:34 PM Age: 81 years old Clinical indication: Fall TECHNIQUE: Imaging protocol: Computed tomography of the head without contrast. COMPARISON: MR CERVICAL SPINE WO/W 05/12/2020 2:00 PM FINDINGS: Brain: A few scattered small areas of decreased density in the periventricular white matter which are likely secondary to chronic ischemia from microvascular change. Scattered old lacunar infarcts in the left basal ganglia region. No acute intracranial hemorrhage. Diffuse cerebral atrophy. Cerebral ventricles: Ventricular prominence in this patient with diffuse cerebral atrophy. Paranasal sinuses: No significant disease of the paranasal sinuses. Mastoid air cells: No mastoiditis. Orbital cavity: Prior cataract surgery. Vasculature: Arterial calcification. Bones/joints: No acute fracture. Soft tissues: Frontal scalp soft tissue edema. IMPRESSION: 1. No acute intracranial findings. 2. No acute fracture. 3. Frontal scalp soft tissue edema. PROCEDURE INFORMATION: Exam: CT Cervical Spine Without Contrast Exam date and time: 08/04/2021 6:34 PM Age: 81 years old Clinical indication: Fall TECHNIQUE: Imaging protocol: Computed tomography images of the cervical spine without contrast. COMPARISON: MR CERVICAL SPINE WO/W 05/12/2020 2:00 PM FINDINGS: Bones/joints: No acute fracture. No subluxation. Discs/Spinal canal/Neural foramina: No significant disc protrusion. No severe spinal canal stenosis. Cervical spine multilevel degenerative / spondylitic changes with multilevel neural foraminal narrowing. Lungs: Lung apices are normal. Soft tissues: Posterior subcutaneous edema. 2.4 x 2.3 x 3.5 cm subcutaneous complex collection in the left posterior neck soft tissues with small internal air collections and additional 2.1 x 1.5 x 2.3 cm subcutaneous complex collection within the left posterior neck soft tissues (collections extend from the C7-T2 levels). IMPRESSION: 1. No acute fracture or subluxation. 2. Posterior subcutaneous edema. 2.4 x 2.3 x 3.5 cm subcutaneous complex collection in the left posterior neck soft tissues with small internal air collections and additional 2.1 x 1.5 x 2.3 cm subcutaneous complex collection within the left posterior neck soft tissues (collections extend from the C7-T2 levels). Possible abscesses. Dictated and Authenticated by: Jeremías Moy MD. Ordering:AUDIE Rubalcava MD
--- NOTE | 2021-08-04 19:50 | NUR.NOTE ---
Facial and right lower leg wounds cleansed with normal saline. Tolerated well. Dressings placed.Nursing Note:
[2021-08-04 19:56] VITALS: BP 141/55; PULSE 62; RESP 16; TEMP 36.6; O2SAT 98
== END 2021-08-04 19:47 | disposition home or self-care (01) ==
PROVIDERS: Emergency Provider Emergency Medicine; PCP Nurse Practitioner Family
DX: S00.01XA Abrasion of scalp, initial encounter (principal); S80.811A Abrasion, right lower leg, initial encounter; W18.09XA Striking against other object with subsequent fall, initial encounter
CPT/HCPCS: 90471; 99284; 70450; 72125; 99283

== ENCOUNTER → 2021-08-10 15:15 | Outpatient (BNVA) | payer MEDICARE, BC, SELFPAY | PROVIDERS: PCP Nurse Practitioner Family; Referring Provider Nurse Practitioner Family; Visit Provider Physical Therapy Assistant | DX: L72.3 Sebaceous cyst (principal); I10 Essential (primary) hypertension | CPT/HCPCS: 99213 ==

== ENCOUNTER → 2021-08-25 10:14 | Outpatient (BNVA) | payer MEDICARE, BC, SELFPAY | PROVIDERS: PCP Nurse Practitioner Family; Referring Provider Nurse Practitioner Family; Visit Provider Surgery | DX: L72.3 Sebaceous cyst (principal); L08.89 Other specified local infections of the skin and subcutaneous tissue | CPT/HCPCS: 10060; 99212 ==

== ENCOUNTER → 2021-09-07 09:50 | Outpatient (BNVA) | payer MEDICARE, BC, SELFPAY | PROVIDERS: PCP Nurse Practitioner Family; Referring Provider Nurse Practitioner Family; Visit Provider Surgery | DX: L72.3 Sebaceous cyst (principal); L08.9 Local infection of the skin and subcutaneous tissue, unspecified | CPT/HCPCS: 11400 ==

== ENCOUNTER → 2021-09-19 10:17 | Outpatient (BNVA) | payer MEDICARE, BC, SELFPAY | PROVIDERS: PCP Nurse Practitioner Family; Referring Provider Nurse Practitioner Family; Visit Provider Surgery | DX: Z48.817 Encounter for surgical aftercare following surgery on the skin and subcutaneous tissue (principal) | CPT/HCPCS: 99211 ==

== ENCOUNTER → 2022-08-14 01:17 | Outpatient (CLI) | payer MEDICARE, SELFPAY ==
--- NOTE | 2022-08-14 08:09 | DI.CT_ITS ---
Exam(s) CT CHEST W EXAM: CT CHEST W CLINICAL HISTORY: f/u lung nodule,h/o lung ca, r91.1,z85.118. TECHNIQUE: Multi planar reconstructions were performed. CONTRAST MATERIAL: Omnipaque 350; 75 cc COMPARISON: CT CHEST WITH CONTRAST from 08/09/[address] CHEST W from 05/05/2020 FINDINGS: CHEST: LUNGS: Again noted is decreased left hemithoracic volume related to prior lobectomy. Some scarring i n the medial left lung adjacent to the aorta is unchanged. Mild benign-appearing increased markings towards the lingular segment of the left lung are unchanged as are some increased markings in the lef t lower lobe lateral basal segment. No pleural effusion. On the opposite-right side previously described nodular ground-glass infiltrate in the right upper lo be presently measures 10 x 9 millimeters, unchanged., slightly lower down in the right upper lobe the re is another area of slightly larger nodular infiltrate which was not previously present and will re quire close follow-up. Also some mild nodular infiltrate is noted in right middle lobe, not previous ly present. No new significant findings in the right lower lobe including the superior segment. The re are no pleural effusions on either side. No new findings in the trachea and mainstem bronchi. MEDIASTINUM: There is no hilar nor mediastinal adenopathy. No subcarinal adenopathy. No supraclavic ular adenopathy. No axillary adenopathy. Visualized thyroid unremarkable. CARDIAC: Heart size is normal. There is no pericardial effusion.Caliber of the thoracic aorta is wit hin normal limits. VISUALIZED UPPER ABDOMEN:There is a tiny hypodense nodule in the lateral limb of the right adrenal gl and measuring 6 x 5 millimeters, more evident than on the prior study. The medial limb of the right adrenal gland is unremarkable. Slight thickening of the genu left adrenal gland is unchanged. Splee n size is normal. Benign cysts are again noted in the left kidney. There is a percutaneous gastrost darci left of center which is in good position the stomach. OSSEOUS: No significant osseous lesions.No fractures.. IMPRESSION: 1. Compared to the prior CT scan of 05/05/2020 there is again noted evidence of previous left lobecto my there are few findings in the left lung which remain stable from the prior study. In the right luis daniel ng there is continue stable appearance of the ground-glass nodular infiltrate in the right upper lobe . However, lower down the right upper lobe there are 2 adjacent nodular infiltrates which were not p reviously evident on require close follow-up rule out developing malignancy. No other right lung fin dings. No pleural effusions. No new intrathoracic adenopathy. 2. Small 6 x 5 millimeter nodule in the lateral limb of the right adrenal gland noted. This may be e xaggerated by some motion artifact here but was not evident on the prior CT scans of July 2017 and April 2020. Left adrenal gland is unchanged. 3. Other findings as above. RADIATION DOSE DELIVERED: 338.04mGy.cm Total DLP DATA REPOSITORY: All CT scans at this facility are submitted to the National Radiology Data Registry (NRDR) Dose Index Registry (DIR) with the [employer] (ACR). RADIATION OPTIMIZATION: All CT scans at this facility use at least one of these dose optimization te chniques: automated exposure control; mA and/or kV adjustment per patient size (includes targeted exa ms where dose is matched to clinical indication); or iterative reconstruction.
[2022-08-14 14:36] LABS: ALT 17 U/L (14-59); AST 20 U/L (15-37); Albumin 3.6 g/dL (3.4-5.0); Alkaline Phosphatase 109 U/L (46-116); Anion Gap 4.4 mmol/L (3-11); BUN 28 mg/dL (7-18); Bilirubin, Total 0.3 mg/dL (0.2-1.0); CO2 33.6 mmol/L (21.0-32.0); CREATININE 0.8 mg/dL (0.55-1.02); Calcium 9.4 mg/dL (8.5-10.1); Chloride 102 mmol/L (98-107); Estimated GFR 73.52 (mL/min/1.73m2); Glucose 87 mg/dL (74-106); Sodium 140 mmol/L (136-145); Total Protein 8.2 g/dL (6.4-8.2)
[2022-08-14] MEDS: Normal Saline Flush 10 ML SYR IVP (14:49)
[2022-08-14] MEDS: Omnipaque 350 MG/ML 500 ML BTL-Imaging package IJ (14:50)
== END ==
PROVIDERS: PCP Nurse Practitioner Family; Visit Provider Student in an Organized Health Care Education/Training Program
DX: I10 Essential (primary) hypertension (principal); R91.1 Solitary pulmonary nodule; Z85.118 Personal history of other malignant neoplasm of bronchus and lung
CPT/HCPCS: 80053; 71260

== ENCOUNTER → 2022-09-28 00:50 | Outpatient (CLI) | payer MEDICARE, SELFPAY ==
--- NOTE | 2022-09-28 11:12 | DI.DEXA_ITS ---
Exam(s) XR DEXA BONE DENSITY W/WO IESHA EXAM: XR DEXA BONE DENSITY W/WO IESHA CLINICAL HISTORY: hx of osteopenia,SCREENING FOR OSTEOPOROSIS, Z78.0 TECHNIQUE: COMPARISON: Comparison examination is 09/08/2008. FINDINGS: Lateral Spine Image: Unremarkable. No compression deformities identified. Left hip: Total T-Score: -2.5. This compares to -1.3 on the prior examination. Total Z-Score: -0.3 T- and Z-scores: This consistent with osteoporosis. Lumbar Spine: Total T-Score: 1.7. This compares to 3.9 on the prior examination. Total Z-Score: 4.5 T- and Z-scores: Within normal limits. IMPRESSION: Osteoporosis in the left hip.
== END ==
PROVIDERS: PCP Nurse Practitioner Family; Visit Provider Nurse Practitioner Family
DX: M81.0 Age-related osteoporosis without current pathological fracture (principal); Z78.0 Asymptomatic menopausal state; Z13.820 Encounter for screening for osteoporosis
CPT/HCPCS: 77080

== ENCOUNTER 2023-02-12 00:53 | Outpatient (CLI) | payer MEDICARE, SELFPAY ==
--- NOTE | 2023-02-12 08:30 | DI.MAMMO_ITS ---
Exam(s) MAMMO SCREENING EXAM: MAMMO SCREENING CLINICAL HISTORY: screening,z12.39 TECHNIQUE: Bilateral full field digital CC and MLO mammographic images were obtained with 3D tomosyn thesis and utilizing computer aided detection (CAD). COMPARISON: Available for comparison. FINDINGS: Masses/Architectural Distortion: None seen. Microcalcifications: No suspicious pleomorphic-type are seen. Skin Thickening/Nipple Retraction: None. IMPRESSION: 1. No significant interval change with no specific features of malignancy noted. 2. Unless there is more urgent need, screening mammography is recommended, as per [employer] [place] [employer] guidelines. BI-RADS Category 1 - Negative Breast Density - Category B - Scattered areas of fibroglandular density Breast density category C or D implies that the patient has dense breast tissue. Dense breast tissue is very common and is not abnormal but dense breast tissue can make it harder to find cancer on a ma mmogram. Also, dense breast tissue may increase their breast cancer risk. This information about the result of the mammogram report was provided to the patient to raise their awareness. Use this report when you speak with the patient about their risks for breast cancer, which includes their family hist ory. At that time, you may recommend for more screening tests (Ultrasound or MRI) as they might be us eful based on their risk. A negative radiographic report should not delay biopsy if a dominant or clinically suspicious mass is present. Up to ten percent of cancers are not identified on mammography. A negative report may reinforce clinical impression. Adenosis and dense breasts may obscure an underlying neoplasm. False positive reports average 6 to 10%. Patient will receive a letter notifying them of these results.
== END 2023-02-12 01:13 ==
LOC: DI 00:53
PROVIDERS: PCP Nurse Practitioner Family; Visit Provider Nurse Practitioner Family
DX: Z12.31 Encounter for screening mammogram for malignant neoplasm of breast (principal)
CPT/HCPCS: 77063; 77067

== ENCOUNTER 2023-02-12 00:53 | Outpatient (CLI) | payer MEDICARE, SELFPAY ==
--- NOTE | 2023-02-12 08:30 | DI.CT_ITS ---
Exam(s) CT CHEST WO EXAM: CT CHEST WO CLINICAL HISTORY: f/u new nodules RUL,r91.8. TECHNIQUE: Imaging protocol: Axial computed tomography images were obtained and coronal and sagittal reformatted images were created and reviewed. COMPARISON: CT CT CHEST W from 08/14/2022 FINDINGS: Tracheobronchial tree: Status post left lobectomy. Pulmonary parenchyma: There is a stable 1 cm nodule in the anterior aspect of the right upper lobe. The infiltrate in the more inferior aspect of the right upper lobe has resolved. There is stable chr onic changes in the right middle lobe. There is a new 1 cm pleural based density associated with the inferior aspect of the right major fissure near the diaphragm. There is a new pleural based infiltr ate seen in left lung base laterally. Parenchymal calcifications are again seen in the posterior asp ect of the left lobe. There is now small associated effusion present. Mediastinum and Diana: No dominant adenopathy or fluid collection. The esophagus is unremarkable. Thyroid gland: Unremarkable. Pleura: No effusion or pneumothorax. Heart: The heart is not dilated. Coronary artery calcifications are present. No pericardial effusion . Aorta: Thoracic aorta non-dilated. Atherosclerosis is present. Upper abdomen: There are stable left renal cysts. There is stable nodularity of the left adrenal gl and. Lymph nodes: Within normal limits. Soft tissues: Unremarkable. Bones:Within normal limits for the patient's age. No aggressive osseous lesions are identified. IMPRESSION: 1. Stable right upper lobe pulmonary nodule. 2. New 1 cm nodular density in the right lung base. New pleural based infiltrate in the left lung la terally. 3. New small left pleural effusion. RADIATION DOSE DELIVERED: 337.93mGy.cm Total DLP 337.93mGy.cm Total DLP DATA REPOSITORY: All CT scans at this facility are submitted to the National Radiology Data Registry (NRDR) Dose Index Registry (DIR) with the [employer] (ACR). RADIATION OPTIMIZATION: All CT scans at this facility use at least one of these dose optimization te chniques: automated exposure control; mA and/or kV adjustment per patient size (includes targeted exa ms where dose is matched to clinical indication); or iterative reconstruction.
== END 2023-02-12 01:13 ==
LOC: DI 00:56
PROVIDERS: PCP Nurse Practitioner Family; Visit Provider Student in an Organized Health Care Education/Training Program
DX: R91.8 Other nonspecific abnormal finding of lung field (principal)
CPT/HCPCS: 71250

== ENCOUNTER 2023-03-27 04:26 | Outpatient (CLI) | payer MEDICARE, SELFPAY ==
[2023-03-27 10:39] LABS: BUN 19 mg/dL (7-18); CREATININE 0.7 mg/dL (0.55-1.02); Calcium 9.3 mg/dL (8.5-10.1); Calculated LDL 94 mg/dL (<100); Chloride 103 mmol/L (98-107); Cholesterol 175 mg/dL (<200); Estimated GFR 85.76 (mL/min/1.73m2); Glucose 91 mg/dL (74-106); HDL Cholesterol 73 mg/dL (40-60); Potassium 3.4 mmol/L (3.5-5.1); Sodium 141 mmol/L (136-145); Triglyceride 43 mg/dL (<150)
[2023-03-27 12:01] LABS: Vitamin D 25 Total 31.2 ng/mL (30-100)
[2023-03-27 19:01] LABS: Rheumatoid Factor <8.6 IU/mL (<12.0)
[2023-03-28 10:12] LABS: Cyclic Citrullinated Peptide <2.5 U/mL (<5.0)
[2023-03-28 10:21] LABS: IgA 375 mg/dL (85-499); IgG 1628 mg/dL (610-1616); IgM 143 mg/dL (35-242)
[2023-03-28 14:59] LABS: ANA Interpretation Positive (Negative); ANA Titer Pattern 1:80 Homogeneous
[2023-03-28 17:42] LABS: Myeloperoxidase Ab IgG <0.2 U; Proteinase 3 Ab (PR3) 0.2 U; Scl 70 Antibodies, IgG <0.2 U
[2023-03-29 09:06] LABS: IgE 74 IU/mL (<158)
[2023-03-29 13:11] LABS: SS-B (La) Ab, IgG 1.6 Units (<20.0)
[2023-03-29 13:24] LABS: Sm (Smith) Ab, IgG 2.1 Units (<20.0)
[2023-03-29 14:56] LABS: dsDNA Ab, IgG <12.3 IU/mL (<30.0)
[2023-03-29 15:39] LABS: SS-A Antibody 6.3 Units (<20.0)
[2023-04-23 14:10] LABS: Anti-EJ Ab Negative (Negative); Anti-Jo-1 Ab <20 Units (<20); Anti-Ku Ab Negative (Negative); Anti-MDA-5 Ab (CADM-140) <20 Units (<20); Anti-Mi-2-Ab Negative (Negative); Anti-NXP-2 (P140) Ab <20 Units (<20); Anti-OJ Ab Negative (Negative); Anti-PL-12 Ab Negative (Negative); Anti-PL-7 Ab Negative (Negative); Anti-PM/Scl-100 Ab <20 Units (<20); Anti-SRP Ab Negative (Negative); Anti-SS-A 52kD Ab, IgG 52 Units (<20); Anti-TIF-1gamma Ab <20 Units (<20); Anti-U1 RNP Ab <20 Units (<20); Anti-U2 RNP Ab Negative (Negative); Anti-U3 RNP (Fibrillarin) Negative (Negative)
== END 2023-03-27 04:27 | disposition home or self-care (01) ==
LOC: LBO 04:26
PROVIDERS: Student in an Organized Health Care Education/Training Program; PCP Nurse Practitioner Family; Visit Provider Nurse Practitioner Family
DX: I10 Essential (primary) hypertension (principal); E78.5 Hyperlipidemia, unspecified; K21.9 Gastro-esophageal reflux disease without esophagitis; M85.88 Other specified disorders of bone density and structure, other site; R91.8 Other nonspecific abnormal finding of lung field; Z85.118 Personal history of other malignant neoplasm of bronchus and lung
CPT/HCPCS: 36415; 80048; 80061; 82306; 82784; 83516; 86200; 86235; 82785; 82787; 86038; 86225; 86431

== ENCOUNTER → 2023-10-30 01:00 | Outpatient (CLI) | payer MEDICARE, SELFPAY ==
--- NOTE | 2023-10-30 08:30 | DI.CT_ITS ---
Exam(s) CT CHEST WO EXAM: CT CHEST WO CLINICAL HISTORY: assess resolution of new nodules R91.8 ABNL FINDINGS. TECHNIQUE: Imaging protocol: Axial computed tomography images were obtained and coronal and sagittal reformatted images were created and reviewed. COMPARISON: CT CT CHEST WO from 02/12/2023 FINDINGS: Tracheobronchial tree: Patent where visualized. Pulmonary parenchyma: There is a persistent 1 cm ground-glass nodule in the right upper lobe. The op acity in the anterior aspect of the right lower lobe has resolved. The pleural and parenchymal scarr ing in the posterior aspect of the left upper lobe persists. The opacity in the anterior aspect of t he left lower lobe has improved compared to the prior examination. There are persistent reticular no dular infiltrate seen in the posterior lateral aspect of the left lower lobe the and the lingula. Ne w reticular nodular infiltrates are seen in the right upper lobe and right middle lobe. Mediastinum and Diana: No dominant adenopathy or fluid collection. The esophagus is unremarkable. Thyroid gland: Unremarkable. Pleura: No effusion or pneumothorax. Heart: The heart is not dilated. Coronary artery calcifications are present. No pericardial effusion . Aorta: Ascending thoracic aorta measures 3.5 x 3.3 cm. Atherosclerosis. Upper abdomen: Left renal cysts. There is a percutaneous gastrostomy tube. Lymph nodes: Within normal limits. Tubes, Catheters, and Lines: There is a percutaneous gastrostomy tube in place. Soft tissues: Unremarkable. Bones:Within normal limits for the patient's age. IMPRESSION: 1. Persistent 1 cm right upper lobe ground-glass nodule. 2. The right lower lobe round opacity has resolved. 3. Areas which have shown improvement since the prior examination include the left lower lobe. New r eticular nodular infiltrates are seen in the right upper and right middle lobes. This may reflect sm all vessel airway disease, infectious or inflammatory process. 4. There are persistent areas of infiltrate/scarring in the left upper lobe, left lower lobe and ling farheen. RADIATION DOSE DELIVERED: 323.36mGy.cm Total DLP 323.36mGy.cm Total DLP DATA REPOSITORY: All CT scans at this facility are submitted to the National Radiology Data Registry (NRDR) Dose Index Registry (DIR) with the [employer] (ACR). RADIATION OPTIMIZATION: All CT scans at this facility use at least one of these dose optimization te chniques: automated exposure control; mA and/or kV adjustment per patient size (includes targeted exa ms where dose is matched to clinical indication); or iterative reconstruction.
== END ==
PROVIDERS: PCP Nurse Practitioner Family; Visit Provider Student in an Organized Health Care Education/Training Program
DX: R91.8 Other nonspecific abnormal finding of lung field (principal); J98.4 Other disorders of lung
CPT/HCPCS: 71250

== ENCOUNTER 2024-01-03 13:36 | Outpatient (REF) | payer MEDICARE, SELFPAY | END 2024-01-03 13:37 | disposition home or self-care (01) | LOC: LBN 13:36 | PROVIDERS: PCP Nurse Practitioner Family; Visit Provider Nurse Practitioner Family | DX: L72.3 Sebaceous cyst (principal); L08.89 Other specified local infections of the skin and subcutaneous tissue | CPT/HCPCS: 87070; 87205 ==

== ENCOUNTER → 2024-09-21 14:10 | Outpatient (BNVA) | payer MEDICARE, SELFPAY | PROVIDERS: PCP Nurse Practitioner Family; Referring Provider Nurse Practitioner Family; Visit Provider Physician Assistant Surgical | DX: C03.0 Malignant neoplasm of upper gum (principal); R91.1 Solitary pulmonary nodule; R91.8 Other nonspecific abnormal finding of lung field; T17.908A Unspecified foreign body in respiratory tract, part unspecified causing other injury, initial encounter; Z85.118 Personal history of other malignant neoplasm of bronchus and lung | CPT/HCPCS: 99214 ==

== ENCOUNTER 2025-07-12 11:30 | Outpatient (CLI) | payer MEDICARE, SELFPAY ==
[2025-07-12 16:08] LABS: HCT 42.2 % (36.0-46.0); HGB 13.0 g/dL (11.2-15.7); MCH 25.7 pg (27.0-33.0); MCHC 30.8 % (32.0-36.0); MCV 84 fL (80-95); MPV 9.6 fL (8.0-11.0); Platelet Count 228 10^3/uL (130-400); RBC 5.05 10^6/uL (3.93-5.22); RDW 14.5 % (11.7-14.6); RDW-SD 44.2 fL; WBC 4.92 10^3/uL (4.4-10.8)
[2025-07-12 16:49] LABS: Anion Gap 5.4 mmol/L (3-11); BUN 21 mg/dL (7-18); CO2 32.6 mmol/L (21.0-32.0); Calcium 9.6 mg/dL (8.5-10.1); Chloride 103 mmol/L (98-107); Estimated GFR 84.70 (mL/min/1.73m2); Glucose 132 mg/dL (74-106); Potassium 4.2 mmol/L (3.5-5.1); Sodium 141 mmol/L (136-145); TSH (W/Ref FT4) 3.10 uIU/mL (0.36-3.74)
[2025-07-12 17:05] LABS: Hemoglobin A1C 5.8 % (<5.7)
[2025-07-13 03:53] LABS: Vitamin B12 443 pg/mL (193-986)
[2025-07-13 15:24] LABS: Calculated LDL 94 mg/dL (<100); Cholesterol 174 mg/dL (<200); HDL Cholesterol 60 mg/dL (>or=50); Triglyceride 101 mg/dL (<150); Vitamin D 25 Total 29 ng/mL (30-100)
== END 2025-07-12 11:31 | disposition home or self-care (01) ==
LOC: LOS 11:30
PROVIDERS: PCP Nurse Practitioner Family; Visit Provider Nurse Practitioner Family
DX: E78.5 Hyperlipidemia, unspecified (principal); Z00.00 Encounter for general adult medical examination without abnormal findings; M81.0 Age-related osteoporosis without current pathological fracture; K21.9 Gastro-esophageal reflux disease without esophagitis; R73.01 Impaired fasting glucose
CPT/HCPCS: 36415; 80048; 80061; 82306; 85027; 82607; 83036; 84443

== ENCOUNTER 2025-08-05 05:34 | Outpatient (CLI) | payer MEDICARE, SELFPAY ==
--- NOTE | 2025-08-05 08:00 | DI.DEXA_ITS ---
Exam(s) XR DEXA BONE DENSITY W/WO [facility] EXAM: XR DEXA BONE DENSITY W/WO [facility] CLINICAL HISTORY: f/u osteoporosis,m81.0,z78.0,postmenopausal status TECHNIQUE: Holo[employer] Horizon C densitometer analysis of left hip, lumbar spine and left forearm. Lateral survey image of the thoracic and lumbar spine. COMPARISON: DX [facility] from 09/08/2008 CR XR DEXA BONE DENSITY W/WO [facility] from 09/28/2022 FINDINGS: Lateral view of the thoracic and lumbar spine shows no evidence of compression fractures. Scoliosis and degenerative changes are noted in the lumbar region. Bone mineral density measurements of the lumbar spine correspond to a total T- score of 1.5, in the normal range. This is not significantly changed from 2019 tube represents of 17.5 percent decrease from 2007. Bone mineral density measurements of the left hip correspond to a total T-score of -2.6. This is not significantly changed from 2021 but this represents a 19.2 percent decrease from 2007. the femoral neck T-score is -3.0, in the osteoporotic range. Theleft forearm bone mineral density measurements correspond to a T-score of the distal 3rd of -2.7, in the osteoporotic range. This represents a 4.2 percent decrease from 2021. The forearm was not analyzed in 2007. IMPRESSION: Normal bone mineral density of the spine. Osteoporosis of the hip and forearm.
== END 2025-08-05 05:54 ==
LOC: DI 05:34
PROVIDERS: PCP Nurse Practitioner Family; Visit Provider Nurse Practitioner Family
DX: Z78.0 Asymptomatic menopausal state (principal); M81.0 Age-related osteoporosis without current pathological fracture
CPT/HCPCS: 77080

== ENCOUNTER 2025-08-06 05:07 | Outpatient (CLI) | payer MEDICARE, SELFPAY ==
--- NOTE | 2025-08-06 06:15 | DI.CT_ITS ---
Exam(s) CT CHEST WO EXAM: CT CHEST WO CT CHEST WO CLINICAL HISTORY: F/U MULTIPLE LUNG NODULES,R91.8. TECHNIQUE: Imaging protocol: Axial computed tomography images were obtained and coronal and sagittal reformatted images were created and reviewed. Computer aided detection (CAD) was utilized. CONTRAST MATERIAL: Noncontrast COMPARISON: CT CT CHEST WO from 10/30/2023 FINDINGS: Pulmonary parenchyma: Right lung: Stable ground-glass nodule in the anterior right upper lobe. Worsening of multiple nodular opacities in the inferolateral right upper lobe and in inferior right middle lobe. Distal bronchiectasis. Worsening of nodular infiltrates in the posterior right lower lobe. Left lung: Stable left-sided volume loss. Stable area of scarring at the left lung base. Stable scarring and bronchiectasis in the left upper lobe and lingula. Distal mucous plugging. Stable appearance of subpleural scarring in the left upper and lower lobes. Left pleural calcification is stable. Emphysema: None. Pleura: No effusion or pneumothorax. Heart: The heart is not dilated. The coronary arteries show mild calcifications. Aorta: Ectatic. Ascending aorta measures 3.4 cm. Mild atherosclerotic changes. Lymph nodes: No enlarged lymph nodes. Bones: Degenerative changes are seen. No evidence of compression fracture. Upper abdomen: Unremarkable. Peg tube noted. Soft tissues: Unremarkable. IMPRESSION: Worsening of nodular infiltrates in the right upper, middle and lower lobes. Stable ground-glass left nodule in the right upper lobe. Stable appearance of areas of scarring and bronchiectasis in the left lung. RADIATION DOSE DELIVERED: 126.9mGy.cm Total DLP 126.9mGy.cm Total DLP DATA REPOSITORY: All CT scans at this facility are submitted to the National Radiology Data Registry (NRDR) Dose Index Registry (DIR) with the [employer] ([employer]). RADIATION OPTIMIZATION: All CT scans at this facility use at least one of these dose optimization techniques: automated exposure control; mA and/or kV adjustment per patient size (includes targeted exams where dose is matched to clinical indication); or iterative reconstruction.
== END 2025-08-06 05:27 ==
LOC: DI 05:07
PROVIDERS: PCP Nurse Practitioner Family; Visit Provider Nurse Practitioner Family
DX: R91.8 Other nonspecific abnormal finding of lung field (principal)
CPT/HCPCS: 71250

== ENCOUNTER → 2025-08-25 14:51 | Outpatient (BNVA) | payer MEDICARE, SELFPAY | PROVIDERS: PCP Nurse Practitioner Family; Referring Provider Nurse Practitioner Family; Visit Provider Internal Medicine Pulmonary Disease | DX: R91.8 Other nonspecific abnormal finding of lung field (principal); J47.9 Bronchiectasis, uncomplicated; Z85.118 Personal history of other malignant neoplasm of bronchus and lung | CPT/HCPCS: 99214 ==

== ENCOUNTER 2025-09-27 11:19 | Outpatient (CLI) | payer MEDICARE, SELFPAY ==
[2025-09-27 14:31] LABS: Abs Immature Grans 0.00 10^3/uL (0.0-0.06); HCT 42.6 % (36.0-46.0); HGB 13.6 g/dL (11.2-15.7); Immature Grans % 0.0 %; MCH 26.7 pg (27.0-33.0); MCHC 31.9 % (32.0-36.0); MCV 84 fL (80-95); MPV 10.2 fL (8.0-11.0); Platelet Count 228 10^3/uL (130-400); RBC 5.10 10^6/uL (3.93-5.22); RDW 14.9 % (11.7-14.6); RDW-SD 45.8 fL; WBC 4.53 10^3/uL (4.4-10.8)
[2025-09-27 14:42] LABS: ALT 11 U/L (10-49); AST 19 U/L (<34); Albumin 4.3 g/dL (3.2-5.0); Alkaline Phosphatase 79 U/L (46-116); Anion Gap 5.2 mmol/L (3-11); BUN 21 mg/dL (9-23); Bilirubin, Total 0.30 mg/dL (0.2-1.2); CO2 34.8 mmol/L (20.0-31.0); Calcium 9.8 mg/dL (8.3-10.6); Chloride 102 mmol/L (98-107); Glucose 100 mg/dL (74-106); Potassium 3.8 mmol/L (3.5-5.1); Sodium 142 mmol/L (136-145); Total Protein 7.9 g/dL (5.7-8.2)
== END 2025-09-27 11:20 | disposition home or self-care (01) ==
LOC: LOS 11:19
PROVIDERS: PCP Nurse Practitioner Family; Visit Provider Nurse Practitioner Family
DX: K52.9 Noninfective gastroenteritis and colitis, unspecified (principal)
CPT/HCPCS: 36415; 80053; 85025